=== PATIENT | male | born 1960 | race Caucasian/White ===

== ENCOUNTER 2019-03-20 | Emergency (ER) | payer OTHER ==
[2019-03-20] MEDS ORDERED: RITALIN LA40 MG PO (19:27)
[2019-03-20] MEDS ORDERED: METHYLPHENIDATE10 MG PO (19:27)
[2019-03-20] MEDS ORDERED: CLONAZEPAM1 M1 PO (19:28)
== END 2019-03-20 19:30 | disposition home or self-care (01) | DRG 605 ==
PROC: 0HQFXZZ Repair Right Hand Skin, External Approach (ICD-10-PCS; principal; 2019-03-20)
DX: S61.210A Laceration without foreign body of right index finger without damage to nail, initial encounter (principal); S61.212A Laceration without foreign body of right middle finger without damage to nail, initial encounter; W45.8XXA Other foreign body or object entering through skin, initial encounter; Y93.K1 Activity, walking an animal

== ENCOUNTER 2023-02-17 10:46 | Emergency (ER) | payer OTHER ==
[~2023-02-17] VITALS: Ht 190.5 cm; Wt 108.8 kg
[2023-02-17] VITALS (10 sets, daily range): BP systolic 94–104; BP diastolic 48–65
[~2023-02-17 10:46] MED LIST: CLONAZEPAM1 M1 PO; METHYLPHENIDATE10 MG PO; RITALIN LA40 MG PO
[2023-02-17 11:14] LABS: BASO% 0.4 % (0-3); EOS% 0.2 % (0-8); HEMATOCRIT 42.6 % (39.0-50.0); HEMOGLOBIN 14.1 g/dl (14.0-18.0); IMMATURE GRANULOCYTES 0.2 % (0.0-5.0); LYMPH% 24.8 % (15-41); MEAN CELL VOLUME 95.1 fL CALC (80.0-100.0); MEAN CORPUSCULAR HGB 31.5 pG CALC (26.0-32.0); MEAN CORPUSCULAR HGB CONC 33.1 g/dL CAL (32.0-36.0); MONO% 12.2 % (2-13); NEUT# 2.85 thou/uL (1.82-7.42); NEUT% 62.2 % (42-76); RED BLOOD COUNT 4.48 mill/uL (4.70-6.10)
[2023-02-17 11:45] LABS: ALBUMIN 4.1 g/dL (3.2-5.0); ALKALINE PHOSPHATASE 54 u/l (38-126); ANION GAP 13 (6-22 (CALC)); BUN 16 mg/dL (9-20); BUN/CREATININE RATIO 16 (12-20 (CALC)); CARBON DIOXIDE 25 mmol/l (22-30); CHLORIDE 105 mmol/l (95-108); GFR FOR AFR.AMER. > 60 ML/MIN (>=60 (CALC)); GFR OTHER RACES > 60 ML/MIN (>=60 (CALC)); POTASSIUM 4.1 mmol/l (3.5-5.1); SGOT/AST 58 u/l (17-59); SODIUM 139 mmol/l (137-146)
[2023-02-17] MEDS ORDERED: TAM75CAP PO (12:52)
[2023-02-17] MEDS ORDERED: ZOFRAN4 MG/TAB PO (12:52)
== END 2023-02-17 13:10 | disposition home or self-care (01) | DRG 153 ==
LOC: ED 10:46
PROVIDERS: Family Medicine
DX: J11.1 Influenza due to unidentified influenza virus with other respiratory manifestations (principal); Z20.822 Contact with and (suspected) exposure to COVID-19

== ENCOUNTER 2023-02-21 17:44 | Emergency (ER) | payer OTHER ==
[~2023-02-21] VITALS: Ht 190.5 cm; Wt 108.0 kg
[2023-02-21] VITALS (11 sets, daily range): BP systolic 100–127; BP diastolic 62–77
[~2023-02-21 17:44] MED LIST changes: +TAM75CAP PO; +ZOFRAN4 MG/TAB PO
[2023-02-21 19:17] LABS: BASO% 0.1 % (0-3); EOS% 1.5 % (0-8); HEMATOCRIT 44.6 % (39.0-50.0); HEMOGLOBIN 14.6 g/dl (14.0-18.0); IMMATURE GRANULOCYTES 0.7 % (0.0-5.0); LYMPH% 11.1 % (15-41); MEAN CELL VOLUME 93.9 fL CALC (80.0-100.0); MEAN CORPUSCULAR HGB 30.7 pG CALC (26.0-32.0); MEAN CORPUSCULAR HGB CONC 32.7 g/dL CAL (32.0-36.0); NEUT# 5.93 thou/uL (1.82-7.42); NEUT% 79.6 % (42-76); RED BLOOD COUNT 4.75 mill/uL (4.70-6.10); RED CELL DISTRI WIDTH 13.8 % (11.5-15.5)
[2023-02-21 19:27] LABS: ALBUMIN 4.4 g/dL (3.2-5.0); ANION GAP 15 (6-22 (CALC)); BILIRUBIN, TOTAL 1.3 mg/dL (0.2-1.3); BUN 16 mg/dL (9-20); BUN/CREATININE RATIO 14 (12-20 (CALC)); CARBON DIOXIDE 22 mmol/l (22-30); CHLORIDE 108 mmol/l (95-108); CREATININE 1.2 mg/dL (0.7-1.3); GFR FOR AFR.AMER. > 60 ML/MIN (>=60 (CALC)); GFR OTHER RACES > 60 ML/MIN (>=60 (CALC)); POTASSIUM 4.2 mmol/l (3.5-5.1); SGOT/AST 66 u/l (17-59); SODIUM 142 mmol/l (137-146); TOTAL PROTEIN 7.7 g/dL (6.3-8.2)
[2023-02-21 19:29] LABS: ALKALINE PHOSPHATASE 93 u/l (38-126)
[2023-02-21] MEDS ORDERED: DICYCLOMINE HYD10 MG PO (21:36)
== END 2023-02-21 22:00 | disposition home or self-care (01) | DRG 395 ==
LOC: ED 17:44
PROVIDERS: Family Medicine
DX: K52.1 Toxic gastroenteritis and colitis (principal); T37.5X5A Adverse effect of antiviral drugs, initial encounter; I10 Essential (primary) hypertension; Z20.822 Contact with and (suspected) exposure to COVID-19